=== PATIENT | female | born 1955 | race Two or more races ===

== ENCOUNTER 2024-04-23 14:55 | Emergency (ER) | payer OTHER ==
[~2024-04-23] VITALS: Ht 152.4 cm; Wt 53.5 kg
[2024-04-23] MEDS ORDERED: XANAX0.25 MG (16:07)
[2024-04-23] MEDS ORDERED: PROZAC10 MG (16:07)
[2024-04-23] MEDS ORDERED: LAMICTAL5 MG (16:08)
[2024-04-23] MEDS ORDERED: WELLBUTRIN SR100 MG (16:08)
== END 2024-04-23 19:42 | disposition home or self-care (01) ==
LOC: ER 14:57
DX: S50.01XA Contusion of right elbow, initial encounter (principal); S50.319A Abrasion of unspecified elbow, initial encounter; W19.XXXA Unspecified fall, initial encounter; Y93.89 Activity, other specified; Y92.89 Other specified places as the place of occurrence of the external cause; Y99.8 Other external cause status; T14.90XA Injury, unspecified, initial encounter; R07.81 Pleurodynia; Z88.0 Allergy status to penicillin